=== PATIENT | female | born 1985 ===

== ENCOUNTER 2023-04-08 12:23 | Emergency (ER) | payer BC, SELFPAY ==
[2023-04-08 12:25] VITALS: BP 130/81; PULSE 78; RESP 16; TEMP 36.9; O2SAT 100
[2023-04-08 12:34] VITALS: PULSE 71; RESP 16; O2SAT 100
--- NOTE | 2023-04-08 13:18 | ED.EXTPRO ---
HPI - Extremity Problem General Chief complaint: Extremity Problem,Nontraumatic Stated complaint: left arm bruising/swelling Time Seen by Provider: 04/08/23 12:37 History of Present Illness HPI Narrative: patient is a 37-year-old female presenting with left arm new bruising and swelling. Patient states that she gave blood 2 days ago. States that they were adjusting her IV repeatedly and digging around in that area to place the IV. States that since then she has developed swelling and bruising worsen she expected. Reports mild pain. Her mom became concerned for blood clot so they came in for evaluation. No numbness or tingling. No chest pain or shortness of breath. No fevers. No further complaints. Related Data Allergies Allergy/AdvReac Type Severity Reaction Status Date / Time No Known Allergies Allergy Verified 04/08/23 12:24 Review of Systems Review of Systems: All systems reviewed & are unremarkable except as noted in HPI and below PMFSH Past Medical History Medical History BMI 34.0-34.9,adult BMI 40.0-44.9, adult Family History Family History Other Diabetes mellitus Family history of cardiovascular disease Hypertension Social History Social History Smoking status: Never smoker Alcohol intake: current Lack of Transportation: No Lack of Food: Never True Current Housing: I Have Housing Concerned About Future Housing: No Difficulty Paying Gas/Electric Bills: No Difficulty Paying for Meds: No Currently Unemployed: No Education: Bachelor's Degree Difficulty w/ Childcare or Family Care: No Living arrangements: with family Exam Narrative: GENERAL: Well-appearing, In no acute distress, pleasant and cooperative HEAD: Normocephalic, atraumatic. EYES: PERRLA and EOMI. ENT: grossly unremarkable NECK: Supple. CHEST: No respiratory distress. HEART: Regular rate and rhythm. . Normal peripheral pulses. EXTREMITIES: Normal range of motion. left antecubital area with ecchymosis extending down forearm with mild associated swelling, radial pulses 2+, distal ROM intact, soft compartments, no swelling or erythema of upper arm SKIN: Warm, dry, bruising as above NEURO: Alert and oriented x3. PSYCH: Normal mood and affect. Course Vital Signs Vital signs: Vital Signs Temperature 98.5 F 04/08/23 12:25 Pulse Rate 78 04/08/23 12:25 Respiratory Rate 16 04/08/23 12:25 Blood Pressure 130/81 04/08/23 12:25 Pulse Oximetry 100 04/08/23 12:25 Oxygen Delivery Room Air 04/08/23 12:25 Temperature 98.5 F 04/08/23 12:25 Pulse Rate 71 04/08/23 12:34 Respiratory Rate 16 04/08/23 12:34 Blood Pressure 130/81 04/08/23 12:25 Pulse Oximetry 100 04/08/23 12:34 Oxygen Delivery Room Air 04/08/23 12:25 MDM - Extremity (Nontraumatic) MDM Narrative Medical decision making narrative: patient is a 37-year-old female presenting with bruising and swelling of her left arm. Vitals stable. Exam remarkable for the above. she does have swelling and ecchymoses on her left forearm and left antecubital area. I think this is related to the recent IV to donate blood. Suspect she has an underlying hematoma. Her compartments are soft, pulses normal, neurovascularly intact. There is no erythema or swelling into her upper arm. I do not think that this represents compartment syndrome or a DVT. Feel she is safe for discharge with supportive care. Advised PCP follow-up. Appropriate return precautions given. Discharged in stable condition. Differential Diagnosis Differential diagnosis: Likely other ( Ecchymosis, hematoma) Medical Records Attestation: I reviewed the patient's medical records. Critical Care Time Critical Care Time Critical Care Time: No Discharge Plan Discharge Clinical
== END 2023-04-08 13:33 | disposition home or self-care (01) ==
PROVIDERS: Emergency Provider Emergency Medicine; PCP Family Medicine
DX: T80.89XA Other complications following infusion, transfusion and therapeutic injection, initial encounter (principal); Y84.8 Other medical procedures as the cause of abnormal reaction of the patient, or of later complication, without mention of misadventure at the time of the procedure
CPT/HCPCS: 99282

== ENCOUNTER 2023-07-08 11:36 | Emergency (ER) | payer BC, SELFPAY ==
--- NOTE | ~2023-07-08 | XR_ITS ---
EXAMINATION: XR foot LT min 3V DATE: 07/08/2023 11:58 INDICATION: Left foot pain post twisting injury TECHNIQUE: Dorsoplantar, two oblique and lateral views of the left foot were obtained. COMPARISON: None. FINDINGS: Alignment is normal. No fracture. 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 Large plantar calcaneal spur and tiny enthesophyte and enthesopathic ossicle at the acromial insertion of the distal Achilles tendon. Soft tissues are unremarkable. IMPRESSION: 1. 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 No acute oss eous abnormality. Reviewed, dictated and finalized at location A. IMPRESSION: 1. Calcaneal enthesophytes and mild osteoarthritis at the distal interphalangea l joints. No acute osseous abnormality.
[2023-07-08 11:45] VITALS: BP 134/95; PULSE 108; RESP 18; TEMP 37; O2SAT 100
--- NOTE | 2023-07-08 11:47 | ED.LOWEXIN ---
HPI - Extremity Injury (Lower) General Chief Complaint: Extremity Injury, Lower Stated Complaint: Injured Foot Time Seen by Provider: 07/08/23 11:47 Source: patient Mode of arrival: ambulatory Limitations: no limitations History of Present Illness HPI Narrative: 37 yo F presents with c/o pain to L foot. Pt states she was at bonfire last night and fell in the grass. Mobile pain to L foot but doesn't remember twisting it on hitting it against anything. pain worse with AM and limping. ROM and distal NV intact. All systems reviewed and negative except as noted above. Related Data Home Medications Medication Instructions Recorded Confirmed levothyroxine 50 mcg tablet 50 mcg PO DAILY 07/08/23 Allergies Allergy/AdvReac Type Severity Reaction Status Date / Time No Known Allergies Allergy Verified 07/08/23 11:41 Review of Systems Review of Systems: CONSTITUTIONAL: Denies fever, chills, or sweats. EYES: Denies visual changes, redness, or discharge. ENT: Denies rhinorrhea, congestion, sore throat, or otalgia. CARDIOVASCULAR: Denies chest pain, palpitations, or edema. RESPIRATORY: Denies cough or dyspnea. GASTROINTESTINAL: Denies abdominal pain, nausea, vomiting, or diarrhea. GENITOURINARY: Denies dysuria or hematuria. SKIN: Denies rash or itching. MUSCULOSKELETAL: Denies back pain. Reports pain to dorsal aspect left. NEUROLOGIC: Denies headache, numbness, or weakness. PSYCHIATRIC: Denies anxiety or depression. All other systems reviewed are negative, except as documented in HPI. [facility] Past Medical History Medical History BMI 34.0-34.9,adult BMI 40.0-44.9, adult Family History Family History Other Diabetes mellitus Family history of cardiovascular disease Hypertension Social History Social History Smoking status: Never smoker Alcohol intake: current Lack of Transportation: No Lack of Food: Never True Current Housing: I Have Housing Concerned About Future Housing: No Difficulty Paying Gas/Electric Bills: No Difficulty Paying for Meds: No Currently Unemployed: No Education: Bachelor's Degree Difficulty w/ Childcare or Family Care: No Living arrangements: with family Comments At time of signature, agree with nursing past medical, surgical, social and family history. There is no relevant family history pertinent to the presenting complaint. Exam Narrative: GENERAL: This is a well-nourished, well-developed patient, in no apparent distress. HEAD: normocephalic, atraumatic. EYES: PERRL. Sclera clear/white. Vision is grossly intact. EARS: External ears normal NOSE: External nose normal NECK: Neck supple, non-tender without lymphadenopathy, masses or thyromegaly. CARDIOVASCULAR: Regular rate and rhythm without murmurs, gallops, or rubs. RESPIRATORY: Clear to auscultation. Breath sounds equal bilaterally. No wheezes, rales, or rhonchi. SKIN: warm, Dry, intact with no suspicious lesions or rash, good texture and turgor. NEURO: awake, alert, and oriented to person, place and time. There were no obvious focal neurologic abnormalities. EXTREMITIES: Tenderness to dorsal aspect of foot near mid 2nd and 3rd metatarsals. Mild swelling noted. No deformity. Range of motion and distal neurovascularly intact. Course Course Level of Care: Express Care Visit Vital Signs Vital signs: Vital Signs Temperature 37.0 C 07/08/23 11:45 Pulse Rate 108 H 07/08/23 11:45 Respiratory Rate 18 07/08/23 11:45 Blood Pressure 134/95 H 07/08/23 11:45 Pulse Oximetry 100 07/08/23 11:45 Oxygen Delivery Room Air 07/08/23 11:45 Temperature 37.0 C 07/08/23 11:45 Pulse Rate 108 H 07/08/23 11:45 Respiratory Rate 18 07/08/23 11:45 Blood Pressure 134/95 H 07/08/23 11:45 Pulse Oximetry 100 03/1
== END 2023-07-08 12:23 | disposition home or self-care (01) ==
PROVIDERS: Emergency Provider Nurse Practitioner Family; PCP Family Medicine
DX: S93.602A Unspecified sprain of left foot, initial encounter (principal); W19.XXXA Unspecified fall, initial encounter
CPT/HCPCS: 73630; 99213; G0463